=== PATIENT | male | born 1995 | race Caucasian/White ===

== ENCOUNTER 2021-02-16 16:56 | Outpatient (REF) | payer OTHER, SELFPAY | END 2021-02-16 16:57 | disposition home or self-care (01) | LOC: HO.LNP 16:56 | PROVIDERS: Visit Provider Physician Assistant Medical | DX: J02.9 Acute pharyngitis, unspecified (principal); Z20.822 Contact with and (suspected) exposure to COVID-19 | CPT/HCPCS: 87071; U0003; U0005 ==